=== PATIENT | female | born 2005 | race Caucasian/White ===

== ENCOUNTER 2025-02-19 14:14 | Emergency (ER) | payer MEDICAID, SELFPAY ==
[2025-02-19 14:22] VITALS: BP 127/76; PULSE 77; RESP 16; TEMP 37.5; O2SAT 97; BMI 30.4
--- NOTE | 2025-02-19 14:35 | ED_ITS ---
Discharge Plan Disposition Patient Disposition: Left Against Medical Advice Condition: Good Referrals Follow up/Referrals: Provider,MD Racquel [Primary Care Provider, Medical] - See instructions Activity Restrictions/Add. Instructions Additional Instructions/Restrictions: Please follow-up closely with a primary care provider. Return to the emergency department for new or worsening symptoms or should you change your mind and wish to have the CT scan. Clinical Impressions Clinical Impression: Headache Instructions Patient Instructions: DI for Migraine, DI for Headache Print Language Print Language: Mongolian Discharge ED Provider: Maeve Reyes General Adult HPI <Maeve Reyes MD - Last Filed: 02/19/25 15:24> General Chief complaint: Headache Stated complaint: head and neck pain Time Seen by Provider: 02/19/25 14:27 Mode of Arrival: Ambulatory Source of Information: Patient Description of Symptoms (Recalled from ER Triage Doc. by RN): Pt reports having left side head and neck pain for approx 2 months. Pt states she called the nurse line with her insurance and they advised being evaluated at ER. Pt also reports having some nausea this date. Pt rates pain 4/10 and comes and goes. History of Present Illness HPI narrative: Patient is a 19-year-old female who presents today with a headache. This has been ongoing for 2 months. She has never had a headache prior to this. She states it is a pressure on the left lateral aspect of her forehead middle of her head in the posterior aspect of her head rating down her neck. Feels like its tension at times. No neurologic symptoms associated with this such as changes in coordination vision numbness weakness tingling arms or legs etc. Related Data Allergies Allergy/AdvReac Type Severity Reaction Status Date / Time No Known Allergies Allergy Verified 02/19/25 14:52 PFSH <Maeve Reyes MD - Last Filed: 02/19/25 15:24> [facility] Disclaimer: The information contained in this section may have been updated after the patient was seen, as this information can be updated by other users. Social History (Updated 02/19/25 @ 15:24 by Maeve Reyes MD) Smoking Status: Current every day smoker alcohol intake: never current occupational status: other Travel in the last 8 weeks?: None Have you lived/traveled outside US in past 30 days?: No Contact w/someone who lives/traveled outside US past 30 days?: No Exposure to someone with infectious disease in past 14 days?: No Do you have a fever (greater than 100.4 F or 38 C)?: No Have you tested positive for COVID-19?: No Exposed to someone with COVID-19 in past 14 days?: No Do you have a sore throat?: No Do you have a cough?: No Do you have any weakness?: No Do you have any diarrhea?: No Are you experiencing any unusual bleeding?: No Do you have any muscle aches/pain?: No Do you have any abdominal pain?: No Are you experiencing loss of taste or smell?: No <Maeve Reyes MD - Last Filed: 02/19/25 15:24> ROS Obtained: Yes All systems reviewed & no additional complaints except as documented Physical Exam <Maeve Reyes MD - Last Filed: 02/19/25 15:24> General General appearance: alert Respiratory Respiratory exam: Present normal lung sounds bilaterally Cardiovascular Cardiovascular exam: Present regular rate Neurological Exam Neurological exam: Present alert, oriented X3, CN II-XII intact and normal gait; Absent motor sensory deficit Medical Decision Making <Maeve Reyes MD - Last Filed: 02/19/25 15:24> Medical Records Screening: Per USPSTF and CDC recommendations, given the prevalence of disease in our region, it is our hospital?s policy to screen for HIV and viral Hepatitis for all patients aged 18 and over and those with ongoing risk factors. Jason Inquiry Pt receiving controlled substance: No Vital Signs: 02/19/25 14:22 02/19/25 15:57 Temperature 99.5 F 99.5 F Temperature Source Oral Oral Pulse Rate 77 Pulse Rate [Left] 77 Respiratory Rate 16 16 Blood Pressure 127/76 Blood Pressure [Right Arm] 127/76 Blood Pressure Mean [Right Arm] 93 Blood Pressure Source Automatic Cuff Blood Pressure Source [Right Arm] Automatic Cuff Blood Pressure Position Sitting 02 Sat by Pulse Oximetry 97 Oxygen Delivery Method Room Air Room Air Orders (Tests/Meds): ED MEDICATIONS Discontinued Medications Generic Name Dose Route Start Last Admin Trade Name Freq PRN Reason Stop Dose Admin Diphenhydramine HCl 25 mg 02/19/25 14:29 02/19/25 15:25 Diphenhydramine 50mg/Ml Vial IV 02/19/25 14:30 25 mg ONCE ONE Administration Lactated Ringer's 1,000 mls @ 999 mls/hr 02/19/25 14:30 02/19/25 15:25 Lactated Ringer's 1000 Ml Bag IV 02/19/25 15:30 999 mls/hr .Q1H1M EILEEN Administration Ketorolac Tromethamine 15 mg 02/19/25 14:29 02/19/25 15:25 Ketorolac 30mg/Ml Vial IV 02/19/25 14:30 15 mg ONCE ONE Administration Prochlorperazine Edisylate 10 mg 02/19/25 14:29 02/19/25 15:25 Prochlorperazine 10mg/2ml Vial IV 02/19/25 14:30 10 mg ONCE ONE Administration Medical Decision Narrative: GCS 15 normal neurologic exam this 19-year-old presenting with 2 months of headache. Given the duration of this we will obtain a CT scan to rule out any type of space-occupying lesion. Symptomatic medications including Toradol Compazine Benadryl and IV fluids have been administered and will reassess. Workup is pending care will be transitioned to Dr. Daly at 3:24 PM <Jenny Daly, DO - Last Filed: 02/19/25 20:13> Vital Signs: 02/19/25 14:22 02/19/25 15:57 Temperature 99.5 F 99.5 F Temperature Source Oral Oral Pulse Rate 77 Pulse Rate [Left] 77 Respiratory Rate 16 16 Blood Pressure 127/76 Blood Pressure [Right Arm] 127/76 Blood Pressure Mean [Right Arm] 93 Blood Pressure Source Automatic Cuff Blood Pressure Source [Right Arm] Automatic Cuff Blood Pressure Position Sitting 02 Sat by Pulse Oximetry 97 Oxygen Delivery Method Room Air Room Air Orders (Tests/Meds): ED MEDICATIONS Discontinued Medications Generic Name Dose Route Start Last Admin Trade Name Freq PRN Reason Stop Dose Admin Diphenhydramine HCl 25 mg 02/19/25 14:29 02/19/25 15:25 Diphenhydramine 50mg/Ml Vial IV 02/19/25 14:30 25 mg ONCE ONE Administration Lactated Ringer's 1,000 mls @ 999 mls/hr 02/19/25 14:30 02/19/25 15:25 Lactated Ringer's 1000 Ml Bag IV 02/19/25 15:30 999 mls/hr .Q1H1M EILEEN Administration Ketorolac Tromethamine 15 mg 02/19/25 14:29 02/19/25 15:25 Ketorolac 30mg/Ml Vial IV 02/19/25 14:30 15 mg ONCE ONE Administration Prochlorperazine Edisylate 10 mg 02/19/25 14:29 02/19/25 15:25 Prochlorperazine 10mg/2ml Vial IV 02/19/25 14:30 10 mg ONCE ONE Administration Medical Decision Narrative: GCS 15 normal neurologic exam this 19-year-old presenting with 2 months of headache. Given the duration of this we will obtain a CT scan to rule out any type of space-occupying lesion. Symptomatic medications including Toradol Compazine Benadryl and IV fluids have been administered and will reassess. Workup is pending care will be transitioned to Dr. Daly at 3:24 PM Addy DO: I assumed care of the patient at 1500 at time of departure of the previous provider. Patient does not want to wait for CT scan, as she states she feels better after migraine cocktail. Given this, she is electing to leave [facility] without obtaining CT scan. I advised that she follow-up closely with primary care and gave strict return precautions. Critical Care <Maeve Reyes MD - Last Filed: 02/19/25 15:24> Critical Care Time Critical Care Time: No
--- OUTSIDE RECORDS SUMMARY | 2025-02-19 14:52 | XMS_ITS | Clinical Summary ---
Author Organization Healthcare Address [address] [place] [address] Care Team Providers Care Machine Shop Worker Name Role Phone Unavailable Primary Care Provider Unavailabl e Social History Tobacco Use Types Packs/Day Years Used Date Smoking Tobacco: Never Assessed Comments Unknown Sex and Gender Information Value Date Recorded Sex Assigned at Not on file Legal Sex Female 2:52 PM EST Gender Identity Not on file Sexual Orientation Not on file Last Filed Vital Signs Vital Sign Reading Time Taken Comments Blood Pressure 136/75 12/20/2022 8:19 AM EDT Pulse 52 12/20/2022 8:19 AM EDT Temperature - - Respiratory Rate - - Oxygen Saturation - - Inhaled Oxygen Concentration - - Weight 101 kg (222 lb 10.6 oz) 12/20/2022 8:19 A M EDT Height 172 cm (5' 7.72 ) 12/20/2022 8:19 AM EDT Body Mass Index 34.14 12/20/2022 8:19 AM EDT Plan of Treatment Health Maintenance Due Date Last Done Comments Dental Prophylaxis 2004 Dental X-Ray: Bitewings 2004 [facility]-Depression Screening 2004 [facility]-HIV Screening 2004 [facility]-Hepatitis C Screening 2004 [facility]-/Child/Adol SDOH Screenings 2004 [facility]- SDOH Screenings 2022 [facility]-Adult SDOH Screenings 2022 Dental Oral Exam 08/06/2023 02/03/2023, 12/20/2022 [id number] Vaccine ( season) 2024 03/06/2021 [facility]-Influenza Vaccine (#1) 2025 05/08/2018, Dental X-Ray: Full Mouth 02/04/2026 02/03/2023, 0503/2023 [facility]-DTaP,Tdap,and Td Vaccines (8 - Td or Tdap) 02/27/2032 02/26/2022, 10/08/2015, 04/26/2008, Additional history exists [facility]-Zoster Vaccines (1 of 2) 2054 04/26/2008, 08/05/2005 [facility]-HIB Vaccines Completed 08/05/2005, 2004 [facility]-Hepatitis B Vaccines Completed 005, 2004, 2004 [facility]-Pneumococcal Vaccine: Pediatrics (0 to 5 Years) and At-Risk Patients (6 to 49 Years) Completed 01/08/2007, 11/24/2005, 08/05/2005, Additional history exists [facility]-IPV Vaccines Completed 04/26/2008, 07/2006, 08/05/2005, Additional history exists [facility]-Varicella Vaccines Completed 04/26/2008, 2004 HPV Vaccines Completed 04/14/2018, 10/08/2015 [facility]-Hepatitis A Vaccines Completed 04/14/2018, 09/16 [facility]-Obesity Intervention Completed 02/03/2023 [facility]-Rotavirus Vaccines Aged Out No lo nger eligible based on patient's age to complete this topic Procedures Procedure Name Priority Date/Time Associated Diagnosis Comments PANORAMIC RADIOGRAPHIC IMAGE Routine 02/03/2023 9:00 AM EDT Dental impaction COMPREHENSIVE ORAL EVALUATION - NEW OR ESTABLISHED PATIENT Routine 02/03/2023 9:00 AM EDT Dental impaction from Last 3 Months or Most Recently Relevant to Health Maintenance Insurance [facility] MEDICAID
--- OUTSIDE RECORDS SUMMARY | 2025-02-19 14:53 | XMS_ITS | Clinical Summary ---
Author Organization [facility] Address [address] [facility] [address] [place] [address] Phone Care Team Providers Care Automotive Sales Manager Name Role Phone Heri Sims MD Primary Care Provider + [phone] Allergies Active Allergy Reactions Criticality Noted Date Comments Latex Rash 03/03/2023 Medications No known medications Active Problems Problem Noted Date Diagnosed Date NST (non-stress test) reactive 03/17/2022 31 weeks gestation of 03/17/2022 Surgical History Surgery Date Site/Laterality Comments SECTION 08/15/2021 - 08/14/2022 Medical History Medical History Date Comments Eczema COVID-19 virus infection 12/2020 Symptom s started 12/25/2020.+ COVID19 12/26/2020 Family History Medical History Relation Name Comments Pacemaker Paternal Grandfather Relation Name Status Comments Paternal Grandfather Social History Tobacco Use Types Packs/Day Years Used Date Smoking Tobacco: Never Passive Smoke Exposure: Yes Smokeless Tobacco: Never Tobacco Cessation:Counseling Given: Not Answered Alcohol Use Standard Drinks/Week Comments Yes 0 (1 standard drink = 0.6 oz pur e alcohol) AUDIT-C Answer Date Recorded Q1: How often do you have a drink containing alc ohol? Never 01/06/2021 Average Number of Drinks Not on file 021 Frequency of Binge Drinking Not on file 12/14 Sexually Active Control Partners Comments Yes Condom, I.U.D. Male Comments No Sex and Gender Information Value Date Recorded Sex Assigned at Not on file Legal Sex Female 6:19 AM EDT Gender Identity Not on file Sexual Orientation Not on file Obstetrics History Para Term AB IAB SAB Ectopic Multiple Livin g Live Births 1 Date Outcome GA Total Labor Labor/2nd/3rd Weight Sex Type Anes PTL Carisa A1 A5 Name Clin Last Filed Vital Signs Vital Sign Reading Time Taken Comments Blood Pressure 145/86 09/16/2024 3:17 PM EST Pulse 114 09/16/2024 2:51 PM EST Temperature 37.1 C (98.8 F) 09/16/2024 3:18 PM EST Respiratory Rate 20 09/16/2024 2:51 PM EST Oxygen Saturation 98% 09/16/2024 2:51 PM EST Inhaled Oxygen Concentration - - Weight 102.5 kg (226 lb) 03/03/2023 11:04 AM EDT Height 172.7 cm (5' 8 ) 03/03/2023 11:04 AM EDT Body Mass Index 34.36 03/03/2023 11:04 AM EDT Plan of Treatment Health Maintenance Due Date Last Done Comments Annual Wellness Exam 2007 Meningococcal B Vaccine (1 of 2 - Standard) 2020 Chlamydia Screening 03/03/2024 03/03/2023, 2 COVID-19 Vaccine (2 - season) 2024 03/06/2021 Influenza Vaccine (#1) 2025 2, 12/09/2021, 05/08/2018, Additional history exists DTaP/TDaP/Td (8 - Td or Tdap) 02/27/2032 02/26/2022, 10/08/2015, 04/26/2008, Additional history exists Pneumococcal Vaccine 0-49 Aged Out 2004 No longer eligible based on patient's age to complete this topic Hepatitis B Vaccine Completed 08/05/2005, 2004, 2004 HPV Completed 04/14/2018, 10/08/2015 Procedures Procedure Name Priority Date/Time Associated Diagnosis Comments CHLAMYDIA/GC BY TANYA STAT 03/03/2023 1 :04 PM EDT from Last 3 Months or Most Recently Relevant to Health Maintenance Results * CHLAMYDIA/GC BY TMA (03/03/2023 1:04 PM EDT) Chlamydia trachomatis Not Detected Not Detected 03/04/2023 3:16 AM EDT PREFERRED LAB [facility], [facility] Neisseria gonorrhoeae Not Detected Not Detected 03/04/2023 3:16 AM EDT PREFERRED LAB [facility] Swab ENDOCERVICAL STRUCTURE / Unknown 03/03/2023 1:04 PM EDT 03/03/2023 1:09 PM EDT Narrative PREFERRED LAB [facility], [facility] - 03/04/2023 3:16 AM EDT Testing methodology is interior design faculty member mediated amplification (TMA) using the Aptima Combo 2 assay from [employer]. A negative result does not completely rule out a Chlamydia trachomatis or Neisseria gonorrhoeae infection due to potential inhibitors or levels present below the limit of detection by this assay. Results are dependent on proper collection and transport of specimen. This test is indicated for medical purposes only and should not be used for legal or forensic purposes. The performance characteristics of this assay were validated by the testing laboratory. This assay is FDA cleared to test the following specimens: clinician-collected endocervical, vaginal, male urethral swab specimens, rectal swabs, and throat/pharyngeal swabs; patient collected vaginal specimens within a clinic setting; Thin Prep Specimens in [employer]; and first-stream, unpreserved male and female urine specimens. Detailed methodology is available upon request. Aidan Trinh MD MICROBIOLOGY - GENERAL ORDER HUNG Final Result PREFERRED [facility], [facility] [address] , [place] [address] from Last 3 Months or Most Recently Relevant to Health Maintenance Insurance [facility] AUTO ACCIDENT GENERIC on file Care Teams Automotive Sales Manager Relationship Specialty Start Date End Date Heri Sims MD PCP - General Pediatrics 07/31/12
[2025-02-19] MEDS: KETOROLAC 30MG/ML VIAL 15 MG IV (15:25)
[2025-02-19] MEDS: PROCHLORPERAZINE 10MG/2ML VIAL 10 MG IV (15:25)
[2025-02-19] MEDS: LACTATED RINGERS 1000ML 1,000 ML 999 ML IV (15:25)
[2025-02-19 15:57] VITALS: BP 127/76; PULSE 77; RESP 16; TEMP 37.5; O2SAT 97
== END 2025-02-19 15:59 | disposition left against medical advice (07) ==
PROVIDERS: Emergency Provider Student in an Organized Health Care Education/Training Program
DX: R51.9 Headache, unspecified (principal); M54.2 Cervicalgia; F17.210 Nicotine dependence, cigarettes, uncomplicated
CPT/HCPCS: 96361; 96374; 96375; 99284; J0780; J1200; J1885; J7120

== ENCOUNTER 2025-03-24 21:45 | Emergency (ER) | payer MEDICAID, SELFPAY ==
[2025-03-24 22:08] VITALS: BP 140/71; PULSE 65; RESP 16; TEMP 37.1; O2SAT 100; BMI 30.4
--- NOTE | 2025-03-24 22:09 | HMH.EDGENADL ---
Discharge Plan Disposition Patient Disposition: Home, Self-Care Condition: Good Referrals Follow up/Referrals: Provider,MD Racquel [Primary Care Provider, Medical] - See instructions Activity Restrictions/Add. Instructions Additional Instructions/Restrictions: Take Tylenol and ibuprofen as needed for pain control. You can use the walking boot as needed for pain control. You can weight-bear as tolerated. Return to the emergency department for any acute or worsening symptoms. Clinical Impressions Clinical Impression: Ankle sprain Print Language Print Language: Bulgarian Discharge ED Provider: Beatriz Bautista General Adult HPI General Chief complaint: Extremity Injury, Lower Stated complaint: AO 03/24/25 20:00 Fall; R Ankle Pain Time Seen by Provider: 03/24/25 22:09 History of Present Illness HPI narrative: Patient is a 19-year-old otherwise healthy female who presented to the emergency department after falling on her right ankle after falling off the porch. Fell onto her right ankle, did not hit her head down did not lose consciousness. Patient denies any other symptoms. Patient does not take any daily medications. Patient denies any other symptoms. Related Data Allergies Allergy/AdvReac Type Severity Reaction Status Date / Time No Known Allergies Allergy Verified 02/19/25 14:52 [facility] Disclaimer: The information contained in this section may have been updated after the patient was seen, as this information can be updated by other users. Social History (Updated 02/19/25 @ 15:24 by Maeve Reyes MD) Smoking Status: Current every day smoker alcohol intake: never current occupational status: other Travel in the last 8 weeks?: None Have you lived/traveled outside US in past 30 days?: No Contact w/someone who lives/traveled outside US past 30 days?: No Exposure to someone with infectious disease in past 14 days?: No Do you have a fever (greater than 100.4 F or 38 C)?: No Have you tested positive for COVID-19?: No Exposed to someone with COVID-19 in past 14 days?: No Do you have a sore throat?: No Do you have a cough?: No Do you have any weakness?: No Do you have any diarrhea?: No Are you experiencing any unusual bleeding?: No Do you have any muscle aches/pain?: No Do you have any abdominal pain?: No Are you experiencing loss of taste or smell?: No ROS Obtained: Yes All systems reviewed & no additional complaints except as documented and Yes Systems reviewed as appropriate & no additional complaints except as documented Physical Exam General General appearance: alert and in no apparent distress Head Head exam: atraumatic, normocephalic and normal inspection Eye Eye exam: Present normal appearance, PERRL and EOMI; Absent scleral icterus ENT ENT exam: Present normal exam and normal external ear exam Neck Neck exam: Present normal inspection and full ROM Chest Chest inspection: Present normal inspection and symmetric chest wall rise Respiratory Respiratory exam: Present normal lung sounds bilaterally; Absent respiratory distress or wheezes Cardiovascular Cardiovascular exam: Present regular rate, normal rhythm, normal heart sounds and other (Pulses intact in the right lower extremity) Abdominal Exam Abdominal exam: Present soft and distention; Absent tenderness, guarding or rebound Extremities Exam Extremities exam: Present normal inspection and other (Right ankle with some swelling along the lateral malleolus, tenderness along the medial and lateral malleolus, no forefoot tenderness, mild decreased range of motion secondary to pain) Back Exam Back exam: Present normal inspection and full ROM Neurological Exam Neurological exam: Present alert, oriented X3 and other (Neurovascular intact in the right lower extremity) Psychiatric Psychiatric exam: Present normal affect and normal mood Skin Skin exam: Present warm and dry Medical Decision Making Medical Records Medical records reviewed: Yes I reviewed the patient's medical records. Screening: Per USPSTF and CDC recommendations, given the prevalence of disease in our region, it is our hospital?s policy to screen for HIV and viral Hepatitis for all patients aged 18 and over and those with ongoing risk factors. Jason Inquiry Pt receiving controlled substance: No Vital Signs: 03/24/25 22:08 Temperature 98.8 F Temperature Source Oral Pulse Rate [Radial] 65 Respiratory Rate 16 Blood Pressure [Right Arm] 140/71 Blood Pressure Mean [Right Arm] 94 Blood Pressure Position [Right Arm] Sitting 02 Sat by Pulse Oximetry 100 Oxygen Delivery Method Room Air Lab Data Lab results reviewed: Yes I reviewed the patient's lab results. Orders (Tests/Meds): ORDERS Category Date Time Status Ankle XR -Right minimum 3 Views [XR ankle RT min 3V] Exams 03/24/25 22:18 Completed Stat Medical Decision Narrative: Patient is a 19-year-old female with no significant past medical history who presented to the emergency department after a fall off a porch onto the right ankle. Patient was able to bear a few steps but had immediate pain. On arrival, patient was hemodynamically stable with unremarkable vital signs. Differential includes but not limited to: Fracture, dislocation, sprain, strain, amongst others X-rays were obtained of the right lower extremity which were reviewed and interpreted by myself and showed no acute pathology. Given that patient had no acute fracture, I felt that patient would be appropriate for for a walking boot. Patient was recommended to weight-bear as tolerated patient was recommended to take Tylenol and ibuprofen at home and use heat and ice as needed. Return precautions were discussed and patient was otherwise discharged home in stable condition. Critical Care Critical Care Time Critical Care Time: No
--- NOTE | 2025-03-24 22:18 | XR_ITS ---
PROCEDURE INFORMATION: Exam: XR Right Ankle Exam date and time: 03/24/2025 10:17 PM Age: 19 years old Clinical indication: Pain; Ankle; Right; Additional info: Ankle injury TECHNIQUE: Imaging protocol: Radiologic exam of the right ankle. Views: 3 or more views. COMPARISON: No relevant prior studies available. FINDINGS: Bones/joints: No acute fracture or dislocation. Tiny accessory ossicle versus old fracture caudal to the lateral malleolus. Ankle mortise is intact. Soft tissues: Mild generalized soft tissue swelling at the level of the ankle. IMPRESSION: Soft tissue swelling.
--- OUTSIDE RECORDS SUMMARY | 2025-03-24 22:18 | XMS_ITS | Clinical Summary ---
Author Organization [facility] Address [address] [facility] [place] [address] Phone Care Team Providers Care Optometry Assistant Name Role Phone Heri Sims MD Primary Care Provider + [phone] Allergies Active Allergy Reactions Criticality Noted Date [...] Detected 03/04/2023 3:16 AM EDT PREFERRED LAB [facility], [facility] Neisseria gonorrhoeae Not Detected Not Detected 03/04/2023 3:16 AM EDT PREFERRED LAB [facility] Swab ENDOCERVICAL STRUCTURE / Unknown 03/03/2023 1:04 PM EDT 03/03/2023 1:09 PM EDT Narrative PREFERRED LAB [facility], [facility] - 03/04/2023 3:16 AM EDT Testing methodology is property controller mediated amplification (TMA) using the Aptima Combo 2 assay from [employer]. A negative result does not completely rule [...] - GENERAL ORDER HUNG Final Result PREFERRED [employer], [facility] [address] [facility] , [place] [address] from Last 3 Months or Most Recently Relevant to Health Maintenance Insurance [facility] AUTO ACCIDENT GENERIC on file Care Teams Optometry Assistant Relationship Specialty Start Date End Date Heri Sims MD PCP - General Pediatrics 07/31/12
--- OUTSIDE RECORDS SUMMARY | 2025-03-24 22:18 | XMS_ITS | Clinical Summary ---
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 Name Role Phone Dede Pedro APRN Primary Care Physician Conditions or Problems Problem Name Problem Code Onset Date Status Entry Date Provider Comment Standard Description Annotate Body mass index (BMI) pediatric; greater than or equal to 95th percentile for age Z68.54 (ICD-10-CM) 09/19 Active 09/19 Lia See [facility] Body mass index [BMI] pediatric, 95th percentile for age to less than 120% of the 95th percentile for age Abnormal electrocard iogram [ECG] [EKG] 087339149 (SNOMED CT) 09/19 Active 09/19 Lia See [facility] Exercise tolerance test abnormal Costochondr al chest pain 08201260 (SNOMED CT) 09/19 Active 09/19 Lia See [facility] Chest pain Body mass index (BMI) pediatric; less than 5th percentile for age Z68.51 (ICD-10-CM) 11/16 Correctio n 11/16 Lia See [facility] Body mass index [BMI] pediatric, less than 5th percentile for age Chest pain, acute 878800051 (SNOMED CT) 09/19 Active 09/19 Lia See [facility] Acute chest pain Implantable subdermal contracepti ve removal 65032602231 9100 (SNOMED CT) 11/17 Active 11/17 Horace Emanuel APRN Removal of subcutaneous contraceptive done Implantable subdermal contracepti ve insertion 05682040964 9103 (SNOMED CT) 09/03 Resolved 09/03 Horace Howashleehell MACHINE GUNNER Insertion of subcutaneous contraceptive done Body mass index (BMI) pediatric; less than 5th percentile for age Z68.51 (ICD-10-CM) 11/16 Removed 11/16 Horace Howdeshell MACHINE GUNNER Body mass index [BMI] pediatric, less than 5th percentile for age Body mass index (BMI) pediatric; less than 5th percentile for age Z68.51 (ICD-10-CM) 09/03 Correctio n 09/03 Hroace Howdeshell MACHINE GUNNER Body mass index [BMI] pediatric, less than 5th percentile for age Body mass index (BMI) pediatric; less than 5th percentile for age Z68.51 (ICD-10-CM) 09/03 Removed 09/03 Horace Howdeshell MACHINE GUNNER Body mass index [BMI] pediatric, less than 5th percentile for age Body mass index (BMI) pediatric; less than 5th percentile for age Z68.51 (ICD-10-CM) 09/03 Correctio n 09/03 Horace Howdeshell MACHINE GUNNER Body mass index [BMI] pediatric, less than 5th percentile for age Body mass index (BMI) pediatric; less than 5th percentile for age Z68.51 (ICD-10-CM) 09/03 Removed 09/03 Horace Howdeshell MACHINE GUNNER Body mass index [BMI] pediatric, less than 5th percentile for age Body mass index (BMI) pediatric; greater than or equal to 95th percentile for age Z68.54 (ICD-10-CM) Correctio n Horace Howdeshell MACHINE GUNNER Body mass index [BMI] pediatric, 95th percentile for age to less than 120% of the 95th percentile for age Implantable subdermal contracepti ve insertion 79294153345 9103 (SNOMED CT) 09/03 Removed 09/03 Horace Palakhell MACHINE GUNNER Insertion of subcutaneous contraceptive done Missed period 20185278 (SNOMED CT) 09/06 Inactive 09/06 Dede Pedro MACHINE GUNNER Missed period Nausea and vomiting 23656637 (SNOMED CT) 09/06 Inactive 09/06 Dede Mayela GARCIA Nausea and vomiting Psoriasis 3625685 (SNOMED CT) Active Kathe Irving APRN Psoriasis PRESUMED PER DERM Body mass index (BMI) pediatric; greater than or equal to 95th percentile for age Z68.54 (ICD-10-CM) Removed Kathe Irving APRN Body mass index [BMI] pediatric, 95th percentile for age to less than 120% of the 95th percentile for age Body mass index (BMI) pediatric; greater than or equal to 95th percentile for age Z68.54 (ICD-10-CM) 05/11 Correctio n 05/11 Kathe Irving APRN Body mass index [BMI] pediatric, 95th percentile for age to less than 120% of the 95th percentile for age 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) Active Kathe Irving APRN Mycosis Contact allergic reaction 074039985 (SNOMED CT) Inactive Mable Sharp APRN Allergic contact dermatitis Strep pharyngitis (strep throat) 63457432 (SNOMED CT) Inactive Mable Sharp APRN Streptococcal sore throat Body mass index (BMI) pediatric; greater than or equal to 95th percentile for age Z68.54 (ICD-10-CM) 05/11 Removed 05/11 Nasima Arthur APRN Body mass index [BMI] pediatric, 95th percentile for age to less than 120% of the 95th percentile for age Body mass index (BMI) pediatric; less than 5th percentile for age Z68.51 (ICD-10-CM) 03/24 Correctio n 03/24 Nasima Arthur APRN Body mass index [BMI] pediatric, less than 5th percentile for age Tinea corporis 53674165 (SNOMED CT) 05/11 Inactive 05/11 Nasima Rocovich MACHINE GUNNER Tinea corporis Unspecified injury of left wrist, hand and finger(s), initial encounter 855157654 (SNOMED CT) 05/11 Inactive 05/11 Nasima Sandhya GARCIA Injury of nail bed of finger FINGER WITH ACRYLLIC PULLING OFF REGULAR NAIL Body mass index (BMI) pediatric; less than 5th percentile for age Z68.51 (ICD-10-CM) 03/24 Removed 03/24 Horace Emanuel APRN Body mass index [BMI] pediatric, less than 5th percentile for age Body mass index (BMI) pediatric; 85th percentile to less than 95th percentile for age Z68.53 (ICD-10-CM) 02/02 Correctio n 02/02 Horace Emanuel MACHINE GUNNER Body mass index [BMI] pediatric, 85th percentile to less than 95th percentile for age Contracepti ve counseling 41108122600 9101 (SNOMED CT) 03/24 Active 03/24 Horace Emanuel APRN Contraception care education done Std screening 298808349 (SNOMED CT) 03/24 Active 03/24 Horace Emanuel APRN Venereal disease screening Body mass index (BMI) pediatric; 85th percentile to less than 95th percentile for age Z68.53 (ICD-10-CM) 02/02 Removed 02/02 Faye Cruz MACHINE GUNNER Body mass index [BMI] pediatric, 85th percentile to less than 95th percentile for age Body mass index (BMI) pediatric; 85th percentile to less than 95th percentile for age Z68.53 (ICD-10-CM) 05/06 Correctio n 05/06 Faye Anthony MACHINE GUNNER Body mass index [BMI] pediatric, 85th percentile to less than 95th percentile for age Vaginal irritation 360722599 (SNOMED CT) 02/02 Inactive 02/02 Faye Cruz MACHINE GUNNER Vaginal irritation Body mass index (BMI) pediatric; 85th percentile to less than 95th percentile for age Z68.53 (ICD-10-CM) 05/06 Removed 05/06 Lilia Mendoza MACHINE GUNNER Body mass index [BMI] pediatric, 85th percentile to less than 95th percentile for age Body mass index (BMI) pediatric; greater than or equal to 95th percentile for age Z68.54 (ICD-10-CM) 05/08 Correctio n 05/08 Lilia Mendoza MACHINE GUNNER Body mass index [BMI] pediatric, 95th percentile for age to less than 120% of the 95th percentile for age Need for prophylacti c immunothera py 425520549 (SNOMED CT) 05/06 Active 05/06 Lilia Mendoza MACHINE GUNNER Prophylactic immunotherapy Body mass index (BMI) pediatric; greater than or equal to 95th percentile for age Z68.54 (ICD-10-CM) 05/08 Removed 05/08 Nilam Vainisi Di Muzio MACHINE GUNNER Body mass index [BMI] pediatric, 95th percentile for age to less than 120% of the 95th percentile for age Body mass index (BMI) pediatric; greater than or equal to 95th percentile for age Z68.54 (ICD-10-CM) 04/14 Correctio n 04/14 Nilam Vainisi Di Muzio MACHINE GUNNER Body mass index [BMI] pediatric, 95th percentile for age to less than 120% of the 95th percentile for age Flu vaccine 76871213 (SNOMED CT) 05/08 Inactive 05/08 Nilam Vainisi Di Muzio MACHINE GUNNER Administration of influenza vaccine Vaccination 970458728 (SNOMED CT) 04/14 Resolved 04/14 Nilam Vainisi Di Muzio MACHINE GUNNER Vaccination required School physical 82510107 (SNOMED CT) 04/14 Resolved 04/14 Nilam Vainisi Di Muzio MACHINE GUNNER History and physical examination, school Counseling for nutrition Z71.3 (ICD-10-CM) 04/14 Inactive 04/14 Nilam Vainisi Di Muzio MACHINE GUNNER Dietary counseling and surveillance Body mass index (BMI) pediatric; greater than or equal to 95th percentile for age Z68.54 (ICD-10-CM) 04/14 Removed 04/14 Nilam Vainisi Di Muzio MACHINE GUNNER Body mass index [BMI] pediatric, 95th percentile for age to less than 120% of the 95th percentile for age Body mass index (BMI) pediatric; greater than or equal to 95th percentile for age Z68.54 (ICD-10-CM) 11/28 Correctio n 11/28 Nilam Vainisi Di Muzio MACHINE GUNNER Body mass index [BMI] pediatric, 95th percentile for age to less than 120% of the 95th percentile for age School physical 13965903 (SNOMED CT) 04/14 Removed 04/14 Nilam Vainisi Di Muzio MACHINE GUNNER History and physical examination, school Vaccination 670783301 (SNOMED CT) 04/14 Removed 04/14 Nilam Vainisi Di Muzio MACHINE GUNNER Vaccination required History of PROBLEMS WITH HEARING 388342681 (SNOMED CT) 10/17 Inactive 10/17 Nilam Vainisi Di Muzio MACHINE GUNNER Hearing problem Problem excluded fro m report: Sports physical exam 214951413 (SNOMED CT) 11/28 Resolved 11/28 Nilam Vainisi Di Muzio MACHINE GUNNER Procedure carried out on subject Counseling for nutrition Z71.3 (ICD-10-CM) 11/28 Inactive 11/28 Nilam Vainisi Di Muzio MACHINE GUNNER Dietary counseling and surveillance Body mass index (BMI) pediatric; greater than or equal to 95th percentile for age Z68.54 (ICD-10-CM) 11/28 Removed 11/28 Nilam Vainisi Di Muzio MACHINE GUNNER Body mass index [BMI] pediatric, 95th percentile for age to less than 120% of the 95th percentile for age Body mass index (BMI) pediatric; 85th percentile to less than 95th percentile for age Z68.53 (ICD-10-CM) 10/19 Correctio n 10/19 Nilam Vainisi Di Muzio MACHINE GUNNER Body mass index [BMI] pediatric, 85th percentile to less than 95th percentile for age Sports physical exam 585702035 (SNOMED CT) 11/28 Removed 11/28 Nilam Vainisi Di Muzio MACHINE GUNNER Procedure carried out on subject Body mass index (BMI) pediatric; 85th percentile to less than 95th percentile for age Z68.53 (ICD-10-CM) 10/19 Removed 10/19 Nilam Vainisi Di Muzio MACHINE GUNNER Body mass index [BMI] pediatric, 85th percentile to less than 95th percentile for age Sports physical exam 362929244 (SNOMED CT) 10/19 Inactive 10/19 Nilam Vainisi Di Muzio MACHINE GUNNER Procedure carried out on subject Vision disorder 49324454 (SNOMED CT) 10/08 Active 10/08 Nilam Vainisi Di Muzio MACHINE GUNNER Disorder of vision School physical 71249395 (SNOMED CT) 10/08 Inactive 10/08 Nilam Vainisi Di Muzio MACHINE GUNNER History and physical examination, school Sports physical exam 920798829 (SNOMED CT) 10/08 Inactive 10/08 Nilam Vainisi Di Muzio MACHINE GUNNER Procedure carried out on subject Vaccination 583877723 (SNOMED CT) 10/08 Inactive 10/08 Nilam Vainisi Di Muzio MACHINE GUNNER Vaccination required ECZEMA 66308567 (SNOMED CT) 10/17 Inactive 10/17 Ray Sparks Eczema COUGH 75364194 (SNOMED CT) 10/17 Resolved 10/17 Ray Sparks Cough COUGH 88228588 (SNOMED CT) 10/17 Removed 10/17 Mirta Dorantes MA Cough History of PROBLEMS WITH HEARING 818164399 (SNOMED CT) 10/17 Removed 10/17 Mirta Dorantes MA Hearing problem OTITIS EXTERNA 2350367 (SNOMED CT) 10/05 Inactive 10/05 Heri Sims MD Otitis externa Medications Medication Instructions Start Date Stop Date Generic Name NDC Provider MEDROL 4 MG TBPK Take by mouth as directed on package. Take with food. methylprednisolone 29102068481 Kathe Barbaara MACHINE GUNNER NEXPLANON 68 MG IMPL etonogestrel 42716869155 Horace Howdeshell MACHINE GUNNER BENADRYL ALLERGY 25 MG TABS Take 1 to 2 tablet by mouth at bedtime as needed for itching and rash. MAY CAUSE DROWSINESS. diphenhydramine hcl 07873729726 Kathe Irving APRN CETIRIZINE HCL 10 MG TABS Take 1 tablet by mouth once a day as needed for allergies/ITCHI NG cetirizine 51715241420 Kathe Irving APRN KETOCONAZOLE 2 % CREA Apply a small amount to affected area twice a day ketoconazole 61173630260 Mable Sharp APRN TRIAMCINOLONE ACETONIDE 0.1 % CREA Apply 1 a small amount to skin twice a day as needed triamcinolone acetonide 04313745968 Mable Sharp APRN HYDROCORTISONE 2.5 % CREA Apply a small amount to skin every night as needed hydrocortisone 33724463775 Mable Sharp APRN Augmentin 500-125 mg tablet Take 1 tablet by mouth twice a day for strep 05/28 amoxicillin-pot clavulanate 47292218011 Mable Sharp APRN LOTRIMIN AF 1 % CREA Apply a small amount to affected area twice a day as needed 05/11 clotrimazole 94501045005 Nasima Arthur APRN KETOCONAZOLE 2 % CREA Apply a small amount to affected area twice a day ketoconazole 52197462404 Nasima Arthur APRN DOXYCYCLINE MONOHYDRATE 100 MG CAPS Take 1 capsule by mouth twice a day 05/18 doxycycline monohydrate 32431319140 Nasima Arthur APRN LOTRIMIN AF 1 % CREA Apply a small amount to affected area twice a day as needed 06/08 clotrimazole 15332712403 Nasima Arthur APRN METRONIDAZOLE 0.75 % GEL Insert 1 applicatorful into vagina twice a day 02/03 metronidazole 52822167356 Faye Cruz APRN METRONIDAZOLE 500 MG TABS Take 4 tablet by mouth single dose 02/04 metronidazole 36903431124 Faye Anthony DANN METRONIDAZOLE 0.75 % GEL Insert 1 applicatorful into vagina twice a day 02/07 metronidazole 89930325786 Faye Anthony DANN DIFLUCAN 150 MG TABS Take 1 tablet by mouth single dose May repeat in 7 days 02/04 fluconazole 09959509974 Faye Cruz MACHINE GUNNER HYDROCORTISONE 2.5 % CREA APPLY SPARINGLY TO AFFECTED AREA(S) TWO TO THREE TIMES A DAY HYDROCORTISONE 36335797194 Nilam Rileyi Di Muzio MACHINE GUNNER TRIAMCINOLONE ACETONIDE 0.1 % CREA APPLY TO AFFECTED AREA TWICE A DAY TRIAMCINOLONE ACETONIDE 12012446703 Heri Sims MD CIPRODEX 0.3-0.1 % OTIC SUSPENSION 4 drops left ear canal bid x 7 days 10/17 CIPROFLOXACIN-DEXAM ETHASONE 96357316251 Ray Sparks CIPRODEX 0.3-0.1 % OTIC SUSPENSION 4 drops left ear canal bid x 7 days CIPROFLOXACIN-DEXAM ETHASONE 35191064947 Heri Sims MD Medications Administered No information available. Allergies, Adverse Reactions, Alerts Observed no known allergies at Results Date Name Value Unit Range Flag Description Lab Report: Urinalysis RBC UR 9 /[HPF] 0-3 H erythrocytes, urine, microscopic Lab Report: CBC WITH DIFF MONOSCT AUTO 1.0 X10(3)/MCL 10*3/uL 0.2-0.8 H Monocytes [#/volume] in Blood by Automated count EOSINOPHIL % 1.0 % Eosinoph ils/100 leukocytes in Blood by Manual count Lab Report: Comprehensive Me tabolic Panel CO2 24 mmol/L 22-29 Carbon dioxid e, total [Moles/volume] in Venous blood Lab Report: BV/VAGINITIS DORADO EL DNA PROBE DNAPROBECAND NOT DETECTED NOT DETECTED N Katelyn guilliermondii DNA [Presence] in Specimen by JAYLA with probe detection VAGCULTGARDN NOT DETECTED NOT DETECTED N Vaginal Culture Gardnerella Office Visit: POSSIBLE COVID RM 19 (POS STREP) RAPID STREP Positive Streptoc occus pyogenes DNA [Presence] in Throat by JAYLA with probe detection Office Visit: N&V/missed per iod PREG TST URN negative beta HC G, urine, semiquantitative LABS ORDERED Test 86546 Laboratory tests ordered Lab Report: HCG, TOTAL, QL BETA-HCG QL NEGATIVE See Note: N beta H CG, serum, qualitative Lab Report: CBC WITH DIFF % BASO AUTO 0.3 % basophils as percent of blood leukocytes, automated count MONOS % MANU 8.0 % monocyte s as percent of blood leukocytes, manual count LYMPHCT AUTO 15.0 % 10*3/mm 3 Lymphocytes [#/volume] in Blood by Automated count Lab Report: Comprehensive Me tabolic Panel EGFR IF AFA NULL mL/min/ 1.73m2 Glomerular filtration rate/1.73 sq M.predicted among blacks [Volume Rate/Area] in Serum, Plasma or Blood by Creatinine-based formula (MDRD) BILI TOTAL 0.3 mg/dL 0.1-1.3 Bilirubin. total [Mass/volume] in Serum or Plasma ALBUMIN 3.8 g/dL 3.2-4.5 Albumin [Mass/volume] in Serum or Plasma CALCIUM 9.6 mg/dL 8.4-10.2 Calcium [Moles/volume] in Serum or Plasma CHLORIDE BLD 99 mmol/L 98-107 chloride , blood Lab Report: Lipase Level LIPASE 13 U/L 13-60 Lipase [Enzym atic activity/volume] in Serum or Plasma Lab Report: ABORh ABO/RH A POS blood type wi th RH factor Lab Report: Human Chorionic [place] [address] m[iU]/m L <5 H beta HCG, serum, quantitative Lab Report: Urinalysis MUCUS URINE 1+ Mucus [Pr esence] in Urine sediment by Light microscopy Lab Report: GRAM STAIN GRAM STAIN Abundant WBCs gram stain Lab Report: Trichomonas Ag TRICHO WET Not Detected Not Detected Trichomonas vaginalis [Presence] in Genital specimen by Wet preparation Lab Report: URINALYSIS POC NITRITE URN Negative Negative Nitrite [Presence] in Urine by Test strip UROBILINOGEN 0.2 0.2, 1.0 Urobili nogen [Presence] in Urine by Test strip Lab Report: CBC WITH DIFF EOS COUNT 0.2 X10(3)/MCL 10*3/mm 3 0.0-0.5 eosinophil count, blood MONOCYTE CNT 0.8 X10(3)/MCL 10*3/mm 3 0.3-0.9 monocyte count, blood LYMPH COUNT 2.5 X10(3)/MCL 10*3/mm 3 1.2-3.9 lymphocyte count, blood IMM GRANU % 0.0 X10(3)/MCL % 0.0-0.1 Immature granulocytes/100 leukocytes in Blood NEUTRO COUNT 6.6 X10(3)/MCL 10*3/mm 3 1.6-6.1 H neutrophil count, blood BASOPHIL % 0.6 % Basophils/ 100 leukocytes in Blood by Manual count % EOS AUTO 1.5 % Eosinophil s/100 leukocytes in Blood by Automated count MONOCYTE % 8.1 % Monocytes/ 100 leukocytes in Blood by Automated count LYMPHS % 24.3 % Lymphocytes/ 100 leukocytes in Blood by Automated count WBC IMMAT 0.4 % immature leukocytes/total leukocytes fraction PMN % 65.1 % Neutrophils/1 00 leukocytes in Blood by Automated count MPV 12.1 fL 8.8-12.5 Platelet mayco n volume [Entitic volume] in Blood by Cesar PLATELETS 241 X10(3)/MCL 10*3/mm 3 155-369 Platelets [#/volume] in Blood by Automated count RDW 12.9 % <=14.9 Erythrocyte distribution width [Ratio] by Automated count MCHC 34.3 G/DL 30.7-35.5 MCHC [Mass/ volume] by Automated count MCH 28.5 pg 26.0-34.0 MCH [Entiti c mass] by Automated count MCV 83.2 fL 80.0-100.0 MCV [Entit ic volume] by Automated count HCT 38.5 % 34.0-45.0 Hematocrit [Volume Fraction] of Blood by Automated count HGB 13.2 g/dL 11.2-15.7 Hemoglobin [Mass/volume] in Blood RBC 4.63 X10(6)/MCL 10*6/mm 3 3.90-5.20 Erythrocytes [#/volume] in Blood by Automated count WBC 10.1 X10(3)/MCL 10*3/mm 3 3.7-10.3 Leukocytes [#/volume] in Blood by Automated count Lab Report: Comprehensive [place] tabolic Panel EGFR NOT AFA 132 mL/min/ 1.73m2 >=60 Glomerular filtration rate/1.73 sq M.predicted among non-blacks [Volume Rate/Area] in Serum, Plasma or Blood by Creatinine-based formula (MDRD) ALK PHOS 121 U/L 36-123 Alkaline phosphatase [Enzymatic activity/volume] in Blood SGOT (AST) 17 U/L <=40 Aspartate aminotransferase [Enzymatic activity/volume] in Serum or Plasma SGPT (ALT) 9 U/L <=41 Alanine aminotransferase [Enzymatic activity/volume] in Serum or Plasma NTL BILI TOT 0.4 mg/dL 0.2-1.3 bilirubi n, , total PROTEIN, TOT 7.3 g/dL 6.4-8.3 Protein [Mass/volume] in Serum or Plasma ALBUMIN EOP 4.2 g/dL 3.5-5.2 Albumin [Mass/volume] in Serum or Plasma by Electrophoresis CREATININE 0.61 mg/dL 0.51-1.30 Creatini ne [Mass/volume] in Serum or Plasma BUN 11 mg/dL 6-20 Urea nitrogen [Mass/volume] in Serum or Plasma BG RANDOM 99 mg/dL 74-100 Glucose [Mass/volume] in Blood ANION GAP 13 mmol/L 7-16 Anion gap 4 in Serum or Plasma CO2 TOTAL 20 mmol/L 22-29 L carbon diox sherrie, serum, total CHLORIDE 106 mmol/L 98-107 Chloride [Moles/volume] in Serum or Plasma POTASSIUM 4.1 mmol/L 3.5-5.0 Potassium [Moles/volume] in Serum or Plasma SODIUM 139 mmol/L 136-145 Sodium [Moles/volume] in Serum or Plasma Replaced Document: Urinalysi s Reflex BACTERIA URN 1+ Negative A Bacteri a [#/area] in Urine sediment by Microscopy high power field EPITH CELL U 1+ /LPF /[HPF] epitheli al cells, squamous, urine WBCS MICRO U 2 /HPF {Cells} /[HPF] 0-4 WBC urine on microscopy SPEC GR URIN <=1.005^ no units 1.001-1.035 Specific gravity of Urine by Test strip WBC DIPSTK U Trace Negative A Leukocy te esterase [Presence] in Urine by Test strip NITRITE UA Negative Negative Nitrite Urine UROBILINO UR 0.2 MG/DL <=1 urobilin ogen, urine PROTEIN UR 30 mg/dL Negative A protein, total urine random PH URINE 6.5 pH 5.0-8.0 pH of Urine by Test strip KETONES UR Negative Negative KETONES, URINE GLUCOSE UA Negative mg/dL Negative Glucose [Mass/volume] in Urine by Test strip APPEARANCE U Clear Clear Appearan ce of Urine UA COLOR Other Color of Uri ne Lab Report: WET PREP YEAST WET MT Yeast not seen. Yeast not seen. microbial wet smear for fungus Lab Report: URINE CULTURE URINE CULT Multiple bacterial species isolated from urine consistent with urogenital commensal organisms. Bacteria identif ied in Urine by Culture Plan of Care Type Date Detail [facility], [address], [place], [phone] Referral [facility], [address], [place], [address] [phone] Referral Dermatology [facility] ([place]) Nando Burciaga M.D. [place], [address] [place], [place], [id number] Pending order ECG 12+ leads; w read & rpt (Don't use for [facility]) 18584 Pending order T1 HCG Serum Juan Miguel litative Pending order Test 8 1025 Pending order Strep Screen 878 80 Pending order Patient Pay- COV [id number] Pending order T2 BV Yeast Tric h Culture (Affirm) Pending order T1 G.C. Chlamydi a Pending order T1 HIV 1/2 Ag & Ab 4th gen -consent required Pending order T1 Hep C Ab Pending order T1 RPR w/ reflex to titer & confirmation Pending order Test 8 1025 Pending order T1 RPR w/ reflex to titer & confirmation Pending Order exclud ed from report: Pending order T1 Hep C Ab Pending Order exclud ed from report: Pending order T1 HIV 1/2 Ag & Ab 4th gen -consent required Pending Order exclud ed from report: Pending order T2 BV Yeast Tric h Culture (Affirm) Pending Order exclud ed from report: Pending order T1 G.C. Chlamydi a Pending Order exclud ed from report: Pending order T2 BV Yeast Tric h Culture (Affirm) Pending order Gardasil Intramu scular Suspension VFC Pending order Havrix Intramusc ular Suspension 720 EL U/0.5ML VFC Pending order Adacel Intramusc ular Suspension 5-2-15.5 VFC Pending order Menactra Intramu scular Injectable VFC Pending order IZ administratio n - single through age 17 - with physician counseling Pending order IZ administratio n - each addtl through age 17 - with physician counseling Pending order Ibuprofen 200 mg Pending order FluMist Quadriva lent Nasal Suspension VFC Pending order IZ administratio n - single through age 17 - with physician counseling Pending order Medication Recon ciliation Patient education Patient Educat ion Given Patient education Patient Educat ion Given Patient education Patient Educat ion Given Patient education Patient Educat ion Given Patient education Patient Educat ion Given Patient education Patient Educat ion Given Patient education Patient Educat ion Given Patient education Patient Educat ion Given Procedures Code Procedure Name Date Entry Date CPT-3075F Most recent systolic blood pressure 130-139 mm Hg CPT-3078F Most recent diastoli c blood pressure <80 mm Hg CPT-79572 ECG 12+ leads; w tiesha d & rpt (Don't use for [facility]are) 67641 CPT-1159F Medication list docu mented in medical record [id number] Medication Reconciliation CPT-41714 Nexplanon Removal CPT-3074F Most recent systolic blood pressure <130 mm Hg CPT-3078F Most recent diastoli c blood pressure <80 mm Hg [facility] 8435 T1 HCG Serum Qualitative 202 04 CPT-3074F Most recent systolic blood pressure <130 mm Hg CPT-3078F Most recent diastoli c blood pressure <80 mm Hg CPT-1159F Medication list docu mented in medical record CPT-22213 Nexplanon Insertion [id number] Giving encouragement to exercise [id number] Dietary management education/guidance/counseling CPT-1159F Medication list docu mented in medical record [id number] Medication Reconciliation CPT-62896 Test 25445 SCT-[id number] Medication Reconciliation CPT-3074F Most recent systolic blood pressure <130 mm Hg CPT-3078F Most recent diastoli c blood pressure <80 mm Hg LUIZ [facility] 2 CPT-81904 Phone Communication Non-MD only 21-30 min s CPT-1159F Medication list docu mented in medical record CPT-75339 Strep Screen 57812 4 [facility] 00213 Patient Pay- COVID-19 SCT-[id number] Medication Reconciliation CPT-3075F Most recent systolic blood pressure 130-139 mm Hg CPT-3078F Most recent diastoli c blood pressure <80 mm Hg CPT-3074F Most recent systolic blood pressure <130 mm Hg CPT-3078F Most recent diastoli c blood pressure <80 mm Hg CPT-48464 Test 51795 [facility] 40148 T1 RPR w/ reflex to titer & confirmation [facility] 8472 T1 Hep C Ab [facility] 88540 T1 HIV 1/2 Ag & Ab 4th gen -consent requi red [facility] 82910 T2 BV Yeast Trich Culture (Affirm) 03/24 [facility] 37747 T1 G.C. Chlamydia CPT-3074F Most recent systolic blood pressure <130 mm Hg CPT-3079F Most recent diastoli c blood pressure 80-89 mm Hg CPT-1159F Medication list docu mented in medical record [id number] Medication Reconciliation [id number] Giving encouragement to exercise SCT-[id number] Dietary management education/guidance/counseling SCT-[id number] Lifestyle education regarding diet 02/02 [facility] 68096 T2 BV Yeast Trich Culture (Affirm) 02/02 CPT-78633XBC Menactra Intramuscular Injectable VFC 202 CPT-19033 IMADM >18YR IM ROUTE 1ST VAC/TOXOID 05/06 SCT-[id number] Medication Reconciliation SCT-[id number] Giving encouragement to exercise SCT-[id number] Dietary management education/guidance/counseling SCT-[id number] Lifestyle education regarding diet 05/06 65078 [facility] VF-Flulaval Preservative Free CPT-38811 IMADM THROUGH 18YR ANY ROUTE 1ST VAC/TOXO ID CPT-3074F Most recent systolic blood pressure <130 mm Hg CPT-3079F Most recent diastoli c blood pressure 80-89 mm Hg SCT-[id number] Medication Reconciliation CPT-24042FXM Gardasil Intramuscular Suspension VFC 201 03/22/31 CPT-51773GGO Havrix Intramuscular Suspension 720 EL U/0.5ML VFC CPT-96558 IMADM THROUGH 18YR ANY ROUTE 1ST VAC/TOXO ID CPT-3074F Most recent systolic blood pressure <130 mm Hg CPT-3078F Most recent diastoli c blood pressure <80 mm Hg SCT-[id number] Medication Reconciliation CPT-3074F Most recent systolic blood pressure <130 mm Hg CPT-3079F Most recent diastoli c blood pressure 80-89 mm Hg SCT-[id number] Medication Reconciliation SCT-[id number] Giving encouragement to exercise SCT-[id number] Dietary management education/guidance/counseling SCT-[id number] Never smoker CPT-3074F Most recent systolic blood pressure <130 mm Hg CPT-3078F Most recent diastoli c blood pressure <80 mm Hg SCT-[id number] Medication Reconciliation SCT-[id number] Medication Reconciliation SCT-[id number] Giving encouragement to exercise SCT-[id number] Dietary management education/guidance/counseling CPT-76999QXC Gardasil Intramuscular Suspension [facility] 201 01/15/24 CPT-19816OZX Havrix Intramuscular Suspension 720 EL U/0.5ML [facility] CPT-94955GXA Adacel Intramuscular Suspension 5-2-15.5 [facility] CPT-63168BSB Menactra Intramuscular Injectable [facility] 201 01/15/24 CPT-20781 IZ administration - single through age 18 - with physician counseling CPT-06066 IZ administration - each addtl through age 18 - with physician counseling CPT-96525NBU FluMist Quadrivalent Nasal Suspension [facility] CPT-23545 IZ administration - single through age 18 - with physician counseling SCT-[id number] Medication Reconciliation Vital Signs Date Name Value Unit Description BMI (Body Mass Index) 34.18 kg/m2 Bod y Mass Index (Ratio) Body Temperature 98.4 [degF] temperat ure E&M Body Temperature 36.89 Yris temperat ure in centigrade E&M BP Diastolic 74 mm[Hg] blood pressu re, diastolic BP Systolic 139 mm[Hg] blood pressur e, systolic BSA (Body Surface Area) 2.21 b luke surface area Heart Rate 71 /min pulse rate Height 68 [in_us] height E&M Height 172.72 cm height in cent imeters E&M Respiratory Rate 16 /min respirat ory rate E&M Weight Measured 101.82 kg weight in kilograms E&M Weight Measured 224 [lb_av] weight E& M Weight Measured 224 [lb_av] weight E& M Immunizations Vaccine Administration Date Standard Description CVX Co de Dose ipv #2 10 Unknown ipv #4 10 Unknown ipv #3 10 Unknown mmr #2 03 Unknown ipv #1 10 Unknown mmr #1 03 Unknown pneuped#4 109 Unknown pneuped#2 109 Unknown pneuped#3 109 Unknown pneumped1 133 Unknown dtap #1 20 Unknown dtap #5 20 Unknown hib #2 17 Unknown dtap #4 20 Unknown hib #1 17 Unknown dtap #3 20 Unknown varicella#1 21 Unknown varicella#2 21 Unknown dtap #2 20 Unknown hepbvax#3 45 Unknown hepbvax#2 45 Unknown hepbvax#1 45 Unknown VFC Menactra Intramuscular Injectable VFC Menactra Intramuscular Injectable 114 0.5 mL VFC Adacel Intramuscular Suspension 5-2-15.5 VFC Adacel Intramuscular Suspension 5-2-15.5 115 0.5 mL VFC Havrix Intramuscular Suspension 720 EL U/0.5ML VFC Havrix Intramuscular Suspension 720 EL U/0.5ML 83 0.5 mL VFC Gardasil Intramuscular Suspension VFC Gardasil Intramuscular Suspension 62 0.5 mL VFC FluMist Quadrivalent Nasal Suspension VFC FluMist Quadrivalent Nasal Suspension 149 0.2 mL VFC Havrix Intramuscular Suspension 720 EL U/0.5ML VFC Havrix Intramuscular Suspension 720 EL U/0.5ML 83 0.5 mL VFC Gardasil Intramuscular Suspension VFC Gardasil Intramuscular Suspension 62 0.5 mL VFC Flulaval Quadrivalent IM Susp 0.5 mL 6 mos-18 yrs VFC Flulaval Quadrivalent IM Susp 0.5 mL 6 mos-18 yrs 158 0.5 mL VFC Menactra Intramuscular Injectable VFC Menactra Intramuscular Injectable 114 0.5 mL Advance Directives No information available.
--- OUTSIDE RECORDS SUMMARY | 2025-03-24 22:18 | XMS_ITS | Clinical Summary ---
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 MEDICAID
[2025-03-24 23:36] VITALS: BP 110/57; PULSE 62; RESP 16; TEMP 36.7; O2SAT 98
== END 2025-03-24 23:38 | disposition home or self-care (01) ==
PROVIDERS: Emergency Provider Student in an Organized Health Care Education/Training Program
DX: S93.401A Sprain of unspecified ligament of right ankle, initial encounter (principal); M25.571 Pain in right ankle and joints of right foot; W17.89XA Other fall from one level to another, initial encounter
CPT/HCPCS: 73610; 99283